=== PATIENT | female | born 1995 | race Two or more races ===

== ENCOUNTER 2022-01-21 19:05 | Emergency (ER) | payer OTHER ==
[~2022-01-21] VITALS: Ht 172.7 cm; Wt 98.4 kg
== END 2022-01-21 22:07 | disposition home or self-care (01) ==
LOC: ER 19:05
DX: R05.9 Cough, unspecified (principal); Z20.822 Contact with and (suspected) exposure to COVID-19

== ENCOUNTER 2022-03-05 14:34 | Outpatient (CLI) | payer OTHER | END 2022-03-05 15:30 | disposition home or self-care (01) | LOC: PRENATAL 14:34 | PROVIDERS: ATTEND Obstetrics & Gynecology Maternal & Fetal Medicine | DX: O35.9XX0 Maternal care for (suspected) fetal abnormality and damage, unspecified, not applicable or unspecified (principal); O35.3XX0 Maternal care for (suspected) damage to fetus from viral disease in mother, not applicable or unspecified; Z3A.22 22 weeks gestation of pregnancy ==

== ENCOUNTER 2022-06-03 17:57 | Inpatient (IN) | payer OTHER ==
[~2022-06-03] VITALS: Ht 170.2 cm; Wt 112.5 kg
[2022-06-03] MEDS ORDERED: PRENATAL TABLE1 EAC1 PO (21:55)
== END 2022-06-07 13:42 | disposition home or self-care (01) | DRG 833 ==
LOC: LDR 17:57 → OB/GYN 06-04 09:48
PROVIDERS: ADMIT Obstetrics & Gynecology; ATTEND Obstetrics & Gynecology
PROC: 4A1HXCZ Monitoring of Products of Conception, Cardiac Rate, External Approach (ICD-10-PCS; principal; 2022-06-03)
PROC: BY4FZZZ Ultrasonography of Third Trimester, Single Fetus (ICD-10-PCS; 2022-06-03)
PROC: BU4CZZZ Ultrasonography of Uterus and Ovaries (ICD-10-PCS; 2022-06-03)
DX: O60.03 Preterm labor without delivery, third trimester (principal); O99.013 Anemia complicating pregnancy, third trimester; D64.9 Anemia, unspecified; Z3A.35 35 weeks gestation of pregnancy; Z20.822 Contact with and (suspected) exposure to COVID-19

== ENCOUNTER 2022-06-23 08:22 | Outpatient (CLI) | payer OTHER ==
[~2022-06-23 08:22] MED LIST: PRENATAL TABLE1 EAC1 PO
== END 2022-06-23 15:44 | disposition home or self-care (01) ==
LOC: OBS/DEL 08:22
PROVIDERS: ATTEND Obstetrics & Gynecology
DX: O47.1 False labor at or after 37 completed weeks of gestation (principal); Z3A.38 38 weeks gestation of pregnancy

== ENCOUNTER 2022-06-25 01:14 | Inpatient (IN) | payer OTHER ==
[~2022-06-25] VITALS: Ht 167.6 cm; Wt 3.6 kg
[2022-06-25] MEDS ORDERED: VALTREX1000 MG PO (01:15)
[2022-06-25] MEDS ORDERED: PRENATAL CAPLE1 EAC1 (01:15)
== END 2022-06-28 13:58 | disposition home or self-care (01) | DRG 788 ==
LOC: O/R 01:14 → OB/GYN 01:14 → LDR 01:14 → O/R 09:48 → OB/GYN 11:29
PROVIDERS: ADMIT Obstetrics & Gynecology; ATTEND Obstetrics & Gynecology
PROC: 4A1HXCZ Monitoring of Products of Conception, Cardiac Rate, External Approach (ICD-10-PCS; 2022-06-25)
PROC: 10D00Z1 Extraction of Products of Conception, Low, Open Approach (ICD-10-PCS; principal; 2022-06-25 12:30)
DX: O82 Encounter for cesarean delivery without indication (principal); O62.1 Secondary uterine inertia; Z3A.38 38 weeks gestation of pregnancy; Z37.0 Single live birth; Z20.822 Contact with and (suspected) exposure to COVID-19